=== PATIENT | male | born 1975 | race Caucasian/White ===

== ENCOUNTER 2018-07-20 05:48 | Emergency (ER) | payer OTHER ==
[2018-07-20 06:15] LABS: Basophils # (A) 0.1 k/uL (0-0.2); Basophils % (A) 1 %; Eosinophils # (A) 0.3 k/uL (0-0.7); Eosinophils % (A) 2 %; HCT 44.5 % (39.0-53.0); HGB 14.2 gm/dL (13.0-17.5); Lymphocytes # (A) 2.3 k/uL (1.0-4.8); Lymphocytes % (A) 18 %; MCH 25.8 pg (25.0-35.0); MCHC 31.9 g/dL (31.0-37.0); MCV 80.8 fL (80.0-100.0); Mean Platelet Volume 6.9; Monocytes # (A) 0.8 k/uL (0-1.0); Monocytes % (A) 6 %; Neutrophils # (A) 9.2 k/uL (1.3-7.7); Neutrophils % (A) 71 %; Platelet Count 292 k/uL (150-450); RBC 5.51 m/uL (4.30-5.90); WBC 12.8 k/uL (3.8-10.6)
[2018-07-20 06:24] LABS: ALT 33 U/L (21-72); AST 15 U/L (17-59); Albumin 4.3 g/dL (3.5-5.0); Alkaline Phosphatase 87 U/L (38-126); Amylase 48 U/L (30-110); Anion Gap 7 mmol/L; Blood Urea Nitrogen 21 mg/dL (9-20); Carbon Dioxide 30 mmol/L (22-30); Chloride 103 mmol/L (98-107); Glucose 103 mg/dL (74-99); Lipase 30 U/L (23-300); Potassium 4.5 mmol/L (3.5-5.1); Sodium 140 mmol/L (137-145); Total Bilirubin 0.4 mg/dL (0.2-1.3)
[2018-07-20] MEDS ORDERED: FAMOTIDINE 20 MG/2 ML VIAL IV STA (07:29)
[2018-07-20] MEDS ORDERED: ONDANSETRON 4 MG/2 ML VIAL IVP STA (07:29)
[2018-07-20] MEDS ORDERED: DICYCLOMINE 10 MG/ML 2 ML AMP IM STA (07:30)
--- NOTE | 2018-07-20 07:30 | XR ---
EXAMINATION TYPE: XR KUB DATE OF EXAM: 07/20/2018 COMPARISON: None INDICATION: Mid abdominal pain TECHNIQUE: Single view abdomen upright view FINDINGS: There is a normal bowel gas pattern. Psoas margins are normal. No organomegaly is present. IMPRESSION: 1. Unremarkable Abdomen
--- NOTE | 2018-07-20 07:33 | ED ---
General Adult HPI - General Chief complaint: Abdominal Pain Stated complaint: Abd Pain Time Seen by Provider: 07/20/18 07:06 Source: patient, RN notes reviewed Mode of arrival: ambulatory Limitations: no limitations - History of Present Illness Initial comments: Patient is a pleasant 42-year-old male presenting to the emergency Department with complaints of abdominal discomfort. Patient was on Colchicine for several days and did have some diarrhea. Patient discontinued this around 5 days ago. Patient has had progressive abdominal discomfort over the past week. Discomfort is lower mid abdomen. Patient has had decreased bowel movements for the past couple of days. Patient feels like his cast his intestines. Patient has mild nausea, no vomiting. Patient is tolerating oral intake. No fevers. No history of similar symptoms previously. No dysuria or hematuria. - Related Data Home Medications Medication Instructions Recorded Confirmed Colchicine 0.6 mg PO DAILY PRN 07/20/18 07/20/18 Colchicine 1.2 mg PO DAILY PRN 07/20/18 07/20/18 Naproxen 500 mg PO BID 07/20/18 07/20/18 Previous Rx's Medication Instructions Recorded Amoxic-Pot Clav 875-125Mg 1 tab PO Q12HR #20 tablet 07/20/18 [Augmentin 875-125] Allergies Allergy/AdvReac Type Severity Reaction Status Date / Time No Known Allergies Allergy Verified 07/20/18 08:00 Review of Systems ROS Statement: Those systems with pertinent positive or pertinent negative responses have been documented in the HPI. ROS Other: All systems not noted in ROS Statement are negative. Constitutional: Denies: fever Eyes: Denies: eye pain ENT: Denies: ear pain Respiratory: Denies: cough Cardiovascular: Denies: chest pain Endocrine: Denies: fatigue Gastrointestinal: Reports: abdominal pain, nausea. Denies: vomiting Genitourinary: Denies: dysuria, hematuria Musculoskeletal: Denies: back pain Skin: Denies: rash Neurological: Denies: weakness Past Medical History Additional Past Medical History / Comment(s): gout History of Any Multi-Drug Resistant Organisms: None Reported Past Surgical History: Orthopedic Surgery Additional Past Surgical History / Comment(s): right acl, right meniscus Past Psychological History: No Psychological Hx Reported Smoking Status: Former smoker Past Alcohol Use History: None Reported Past Drug Use History: Marijuana General Exam Limitations: no limitations General appearance: alert, in no apparent distress, obese Head exam: Present: atraumatic Eye exam: Present: normal appearance Neck exam: Present: normal inspection Respiratory exam: Present: normal lung sounds bilaterally Cardiovascular Exam: Present: regular rate, normal rhythm GI/Abdominal exam: Present: soft, tenderness (Mild tenderness below the umbilicus), normal bowel sounds. Absent: distended, guarding, rebound, rigid, pulsatile mass Extremities exam: Present: normal inspection Neurological exam: Present: alert Psychiatric exam: Present: normal affect, normal mood Skin exam: Present: normal color Course Vital Signs 07/20/18 05:52 Temperature 98 F Pulse Rate 73 Respiratory 20 Rate Blood Pressure 141/85 O2 Sat by Pulse 93 L Oximetry Medical Decision Making - Medical Decision Making Patient reevaluated and resting comfortably in bed. Patient updated on results and need for follow-up. - Lab Data Result diagrams: 07/20/18 06:06 07/20/18 06:06 Lab Results 07/20/18 07/20/18 Range/Units 06:06 06:06 WBC 12.8 H (3.8-10.6) k/uL RBC 5.51 (4.30-5.90) m/uL Hgb 14.2 (13.0-17.5) gm/dL Hct 44.5 (39.0-53.0) % MCV 80.8 (80.0-100.0) fL MCH 25.8 (25.0-35.0) pg MCHC 31.9 (31.0-37.0) g/dL RDW 15.0 (11.5-15.5) % Plt Count 292 (150-450) k/uL Neutrophils % 71 % Lymphocytes % 18 % Monocytes % 6 % Eosinophils % 2 % Basophils % 1 % Neutrophils # 9.2 H (1.3-7.7) k/uL Lymphocytes # 2.3 (1.0-4.8) k/uL Monocytes # 0.8 (0-1.0) k/uL Eosinophils # 0.3 (0-0.7) k/uL Basophils # 0.1 (0-0.2) k/uL Sodium 140 (137-145) mmol/L Potassium 4.5 (3.5-5.1) mmol/L Chloride 103 (98-107) mmol/L Carbon Dioxide 30 (22-30) mmol/L Anion Gap 7 mmol/L BUN 21 H (9-20) mg/dL Creatinine 0.72 (0.66-1.25) mg/dL Est GFR (CKD-EPI)AfAm >90 (>60 ml/min/1.73 sqM) Est GFR (CKD-EPI)NonAf >90 (>60 ml/min/1.73 sqM) Glucose 103 H (74-99) mg/dL Calcium 10.0 (8.4-10.2) mg/dL Total Bilirubin 0.4 (0.2-1.3) mg/dL AST 15 L (17-59) U/L ALT 33 (21-72) U/L Alkaline Phosphatase 87 (38-126) U/L Total Protein 7.0 (6.3-8.2) g/dL Albumin 4.3 (3.5-5.0) g/dL Amylase 48 (30-110) U/L Lipase 30 (23-300) U/L - Radiology Data Radiology results: report reviewed (Computed tomography scan of the abdomen pelvis shows acute uncomplicated diverticulitis), image reviewed (Abdominal x- ray shows no acute process) Disposition Clinical Impression: Diverticulitis Disposition: HOME SELF-CARE Condition: Stable Instructions (If sedation given, give patient instructions): Diverticulitis (ED ), High Fiber Diet (ED) Additional Instructions: Please follow-up with primary care physician in the next couple days for recheck. Return for increased pain, bleeding, fevers, worsening symptoms or other concerns. High-fiber diet. Prescriptions: Amoxic-Pot Clav 875-125Mg [Augmentin 875-125] 1 tab PO Q12HR #20 tablet Is patient prescribed a controlled substance at d/c from ED?: No Referrals: Chay Crews MD [Primary Care Provider] - 1-2 days Time of Disposition: 09:14
--- NOTE | 2018-07-20 08:39 | CT ---
EXAMINATION TYPE: CT abdomen pelvis w con DATE OF EXAM: 07/20/2018 COMPARISON: None HISTORY: pain above groin CT DLP: 3256 mGycm CONTRAST: CT scan of the abdomen and pelvis is performed without Oral Contrast and with IV Contrast, patient in jected with 100 mL of Isovue 300. FINDINGS: LUNG BASES-: No visible nodule. No infiltrate. LIVER/GB: There is evidence of mild hepatomegaly. No calcified gallstones. No space occupying hepat ic lesion. Biliary tree is of normal caliber. PANCREAS: No inflammation. No distinct mass. SPLEEN: No splenic enlargement. No lesion seen. ADRENALS: No nodule. No thickening. KIDNEYS/BLADDER: No hydronephrosis. No nephrolithiasis. No distinct renal mass. Urinary bladder g rossly unremarkable. BOWEL: There is mild wall thickening of the distal descending colon/sigmoid colonic junction with jimbo rounding inflammatory fat compatible with acute diverticulitis. There is no evidence for perforation or abscess. No evidence for free air. Normal appendix. Normal bowel caliber. No inflammation. GENITAL ORGANS: No gross abnormality. LYMPH NODES: No greater than 1cm abdominal or pelvic lymph nodes are appreciated. AORTA: No significant abnormality. OSSEOUS STRUCTURES: No significant abnormality is seen. OTHER: There is a fat-containing umbilical hernia noted. IMPRESSION: 1. There is evidence of a uncomplicated acute diverticulitis of the descending colonic/sigmoid coloni c junction. 2. Mild hepatomegaly. 3. Umbilical fat-containing hernia.
[2018-07-20 10:07] VITALS: BP 134/82; PULSE 88; RESP 18; TEMP 98.2
== END 2018-07-20 09:50 | disposition home or self-care (01) ==
LOC: EC 05:48
DX: K57.32 Diverticulitis of large intestine without perforation or abscess without bleeding (principal); M10.9 Gout, unspecified; Z87.891 Personal history of nicotine dependence; Z79.1 Long term (current) use of non-steroidal anti-inflammatories (NSAID)
CPT/HCPCS: 36415; 80053; 82150; 83690; 85025; 74018; 74177; 99284; 96374; 96375; 96372; J0500; J2405; Q9967

== ENCOUNTER 2021-04-15 11:21 | Emergency (ER) | payer OTHER ==
[2021-04-15 11:29] VITALS: BP 146/92; PULSE 83; RESP 18; TEMP 98
--- NOTE | 2021-04-15 12:26 | ED ---
Lower Extremity Injury HPI - General Chief Complaint: Extremity Injury, Lower Stated Complaint: fall/knee pain Time Seen by Provider: 04/15/21 11:42 Source: patient Mode of arrival: ambulatory Limitations: no limitations - History of Present Illness Initial Comments: This 45-year-old obese male presents to the emergency department with left knee pain. Patient states he was going to get into his car this morning and lifted his right leg to get into his car, when his left leg gave out, causing him to drop to the ground. Patient denies any past trauma or surgeries to his left knee. Patient states he did not hear or feel any popping or cracking to the site. Patient states he is now having pain to his knee. Patient states he is able to stand and bear weight on his leg. Patient denies falling and hitting head or any other body part. Patient states he is not on any blood thinners. Patient denies any chest pain, shortness of breath, abdominal pain, headache, change in vision, dizziness or nausea, vomiting. - Related Data Home Medications Medication Instructions Recorded Confirmed Naproxen 500 mg PO BID PRN 07/20/18 04/15/21 Allergies Allergy/AdvReac Type Severity Reaction Status Date / Time No Known Allergies Allergy Verified 04/15/21 12:56 Review of Systems ROS Statement: Those systems with pertinent positive or pertinent negative responses have been documented in the HPI. ROS Other: All systems not noted in ROS Statement are negative. Past Medical History Additional Past Medical History / Comment(s): gout History of Any Multi-Drug Resistant Organisms: None Reported Past Surgical History: Orthopedic Surgery Additional Past Surgical History / Comment(s): right acl, right meniscus Past Psychological History: No Psychological Hx Reported Smoking Status: Former smoker Past Alcohol Use History: None Reported Past Drug Use History: Marijuana General Exam Limitations: no limitations General appearance: alert, in no apparent distress Head exam: Present: atraumatic, normocephalic, normal inspection Eye exam: Present: normal appearance, PERRL, EOMI. Absent: scleral icterus, conjunctival injection, periorbital swelling ENT exam: Present: normal exam, mucous membranes moist Neck exam: Present: normal inspection, full ROM Respiratory exam: Present: normal lung sounds bilaterally. Absent: respiratory distress, wheezes, rales, rhonchi, stridor Cardiovascular Exam: Present: regular rate, normal rhythm, normal heart sounds. Absent: systolic murmur, diastolic murmur, rubs, gallop, clicks GI/Abdominal exam: Present: soft, normal bowel sounds. Absent: distended, tenderness, guarding, rebound, rigid Extremities exam: Present: full ROM, tenderness (Tenderness to left medial knee. Negative anterior or posterior drawer test. No pain to pushing or pulling left knee. Pain to medial knee when twisting lower leg (Apley grind test +) No bruising, erythema, abrasions, swelling noted), normal capillary refill. Absent: pedal edema, joint swelling, calf tenderness Back exam: Present: normal inspection. Absent: CVA tenderness (R), CVA tenderness (L) Neurological exam: Present: alert, oriented X3, CN II-XII intact Psychiatric exam: Present: normal affect, normal mood Skin exam: Present: warm, dry, intact, normal color. Absent: rash Course Vital Signs 04/15/21 11:26 Temperature 98 F Pulse Rate 83 Respiratory 18 Rate Blood Pressure 146/92 O2 Sat by Pulse 98 Oximetry Medical Decision Making - Medical Decision Making This 45-year-old male presented to emergency department with left knee pain after his knee gave out when getting to his car. Patient with medial knee pain to palpation to medial knee pain with Apley grind maneuver. Left knee x-ray impression: Is no acute fracture or dislocation and left knee. Mild narrowing medial tibiofemoral and patellofemoral compartments. Overlying soft tissue appears unremarkable. Patient had [id number] drop off a walker for him to use, therefore patient did not want me to write a prescription for crutches. Nash wrap applied over her left knee. Patient has appointment set up with his orthopedic doctor for this upcoming Monday. Patient verbally agreed to plan. Patient advised to keep leg elevated and iced until orthopedics is seen. Strict return precautions discussed. Patient sent home in stable condition. Case d iscussed with Dr. Means. Disposition Clinical Impression: Left medial knee pain Disposition: HOME SELF-CARE Condition: Stable Instructions (If sedation given, give patient instructions): Knee Pain (ED) Additional Instructions: Please return to the emergency department with any new, concerning, worsening symptoms. Please to orthopedic appointment next Monday with her doctor. Is patient prescribed a controlled substance at d/c from ED?: No Referrals: Chay Crews MD [Primary Care Provider] - 1-2 days Time of Disposition: 13:17
--- NOTE | 2021-04-15 13:08 | XR ---
EXAMINATION TYPE: XR knee complete LT DATE OF EXAM: 04/15/2021 CLINICAL HISTORY: Fall injury with pain TECHNIQUE: Three views of the left knee are obtained. COMPARISON: None. FINDINGS: There is no acute fracture/dislocation evident in left knee. Mild narrowing medial tibiofe moral and patellofemoral compartments. The overlying soft tissue appears unremarkable. IMPRESSION: There is no acute fracture or dislocation in the left knee.
== END 2021-04-15 14:04 | disposition home or self-care (01) ==
LOC: EC 11:21
DX: M25.562 Pain in left knee (principal); F12.90 Cannabis use, unspecified, uncomplicated; Z87.891 Personal history of nicotine dependence
CPT/HCPCS: 99283

== ENCOUNTER 2021-05-07 18:38 | Emergency (ER) | payer OTHER ==
[2021-05-07 19:03] VITALS: RESP 20; TEMP 98.5
[2021-05-07 19:20] LABS: Basophils # (A) 0.1 k/uL (0-0.2); Basophils % (A) 1 %; Eosinophils # (A) 0.4 k/uL (0-0.7); Eosinophils % (A) 6 %; HCT 41.3 % (39.0-53.0); HGB 13.4 gm/dL (13.0-17.5); Lymphocytes # (A) 1.6 k/uL (1.0-4.8); Lymphocytes % (A) 26 %; MCH 28.3 pg (25.0-35.0); MCHC 32.5 g/dL (31.0-37.0); MCV 87.1 fL (80.0-100.0); Mean Platelet Volume 7.4; Monocytes # (A) 0.4 k/uL (0-1.0); Monocytes % (A) 6 %; Neutrophils # (A) 3.8 k/uL (1.3-7.7); Neutrophils % (A) 60 %; Platelet Count 214 k/uL (150-450); RBC 4.75 m/uL (4.30-5.90); RDW 14.2 % (11.5-15.5); WBC 6.3 k/uL (3.8-10.6)
[2021-05-07 19:29] LABS: ALT 32 U/L (4-49); AST 26 U/L (17-59); African American GFR (CKD) >90 (>60 ml/min/1.73 sqM); Albumin 3.6 g/dL (3.5-5.0); Alkaline Phosphatase 70 U/L (38-126); Anion Gap 7 mmol/L; Blood Urea Nitrogen 19 mg/dL (9-20); Carbon Dioxide 27 mmol/L (22-30); Chloride 105 mmol/L (98-107); Glucose 146 mg/dL (74-99); Magnesium 1.8 mg/dL (1.6-2.3); Non-African American GFR(CKD) >90 (>60 ml/min/1.73 sqM); Potassium 3.8 mmol/L (3.5-5.1); Sodium 139 mmol/L (137-145); Total Bilirubin 0.4 mg/dL (0.2-1.3); Total Protein 6.5 g/dL (6.3-8.2)
[2021-05-07 19:30] LABS: INR 0.9 (<1.2); Partial Thromboplastin Time 22.6 sec (22.0-30.0); Prothrombin Time 10.2 sec (9.0-12.0)
--- NOTE | 2021-05-07 19:37 | XR ---
EXAMINATION TYPE: XR chest 2V DATE OF EXAM: 05/07/2021 7:19 PM COMPARISON:Chest radiographs from 11/13/2009 TECHNIQUE: XR chest 2V Frontal and lateral views of the chest. CLINICAL INDICATION:Male, 45 years old with history of Chest Pain; FINDINGS: Lungs/Pleura: There is no evidence of pleural effusion or pneumothorax. Left basilar opacity not defi nitely seen on prior. Pulmonary vascularity: Unremarkable. Heart/mediastinum: Cardiomediastinal silhouette is unremarkable. Musculoskeletal: No acute osseous pathology. IMPRESSION: Left basilar airspace opacity correlate for pneumonia.
[2021-05-07 23:07] VITALS: BP 147/100; PULSE 81
--- NOTE | 2021-05-07 23:48 | CT ---
EXAMINATION TYPE: CT chest angio for PE DATE OF EXAM: 05/07/2021 COMPARISON: None HISTORY: SOB CT DLP: 1113.5 mGycm Automated exposure control for dose reduction was used. CONTRAST: Performed with IV Contrast, patient injected with 100 mL of Isovue 370. Images obtained from the thoracic inlet to the diaphragm with IV contrast. There are Three-D postproc essed images. The lungs are clear of consolidation. There is no pleural effusion. There is a few paratracheal lymph nodes up to 1 cm. There are bronchial lymph nodes up to 1.5 cm. There is normal contrast opacification of the pulmonary arteries. There are no filling defects. The heart size is fairly normal. There is no pericardial effusion. Thoracic spine is intact. There is no compression fracture. Sternum is intact. The upper abdominal soft tissues are intact. Exam limite d by patient size. IMPRESSION: No evidence of pulmonary embolism. Nonspecific mediastinal and bronchial lymph nodes.
--- NOTE | 2021-05-08 00:02 | ED ---
Chest Pain HPI - General Chief Complaint: Chest Pain Stated Complaint: chest pain, dizziness Source: patient Mode of arrival: wheelchair Limitations: no limitations - History of Present Illness Initial Comments: 45-year-old male presents emergency Department with reported chest wall pain. States that he sustained a fall 2 weeks ago. 4 days after his incident he began having sternal pain. He went to [facility] 2 days ago and had laboratory studies and a CT of his chest performed. He was discharged home with a prescription for [employer]. He reports that he was at a constitution party when he felt lightheaded as if he was given a pass out. States he's been increasingly short of breath with palpitations and therefore presented today for further evaluation. He states the CT was without contrast. He denies previous history of cardiac disease. Denies cough, congestion or fevers. No other alleviating, precipitating or modifying factors - Related Data Home Medications Medication Instructions Recorded Confirmed Naproxen 500 mg PO BID PRN 07/20/18 05/07/21 Albuterol Sulfate [Proair Hfa] 2 puff INHALATION RT-QID PRN 05/07/21 05/07/21 Allergies Allergy/AdvReac Type Severity Reaction Status Date / Time No Known Allergies Allergy Verified 05/07/21 23:32 Review of Systems ROS Statement: Those systems with pertinent positive or pertinent negative responses have been documented in the HPI. ROS Other: All systems not noted in ROS Statement are negative. EKG Findings - EKG Comments: EKG Findings:: EKG demonstrates sinus rhythm with a ventricular rate of 85. UT interval 139. QRS 104. QTC of 409. No acute ST segment elevations or depressions concerning for ischemic changes Past Medical History Past Medical History: No Reported History Additional Past Medical History / Comment(s): gout History of Any Multi-Drug Resistant Organisms: None Reported Past Surgical History: Orthopedic Surgery Additional Past Surgical History / Comment(s): right acl, right meniscus Past Psychological History: No Psychological Hx Reported Smoking Status: Former smoker Past Alcohol Use History: Rare Past Drug Use History: Marijuana General Exam Limitations: no limitations Course Vital Signs 05/07/21 05/07/21 05/07/21 18:59 23:03 23:19 Temperature 98.5 F Pulse Rate 96 81 Respiratory 20 20 20 Rate Blood Pressure 133/76 147/100 O2 Sat by Pulse 94 L 96 Oximetry Chest Pain MDM - MDM Upon arrival patient is placed into room 2. A thorough history and physical exam is performed. IV access established laboratory studies were conducted. 12-lead EKG is performed. He is sent over for a CT of his chest with contrast. Laboratory studies are reviewed and troponin is negative at. CT demonstrates no acute PE, sternal fracture or signs of pneumonia. Results are discussed with the patient. Patient feels comfortable for discharge at this time. He does have follow-up next week for stress test. Instructed that he must have this test performed to ensure cardiac health. Return for any new or worsening symptoms per patient was discharged in stable condition Disposition Clinical Impression: Chest wall pain Disposition: HOME SELF-CARE Condition: Stable Instructions (If sedation given, give patient instructions): Chest Wall Pain (ED) Additional Instructions: Take Advil/Aleve/Motrin as directed on the bottle for pain relief. Return to the ED for any new or worsening symptoms. Is patient prescribed a controlled substance at d/c from ED?: No Referrals: Chay Crews MD [Primary Care Provider] - 1-2 days Time of Disposition: 00:01
== END 2021-05-08 00:32 | disposition home or self-care (01) ==
LOC: EC 18:38
DX: R07.89 Other chest pain (principal); F12.90 Cannabis use, unspecified, uncomplicated; Z87.891 Personal history of nicotine dependence; W19.XXXA Unspecified fall, initial encounter
CPT/HCPCS: 36415; 93005; 80053; 83735; 84484; 85025; 85610; 85730; 71046; 71275; 99285; Q9967

== ENCOUNTER → 2021-08-30 | Outpatient (CLI) | payer OTHER ==
[~2021-08-30] MED LIST: REGADENOSON 0.4 MG/5 ML SYRINGE IV PRN
--- NOTE | 2021-08-30 13:32 | NM ---
EXAMINATION TYPE: NM stress lexiscan cardiolite DATE OF EXAM: 08/30/2021 COMPARISON: NONE HISTORY: Heart palpitations TECHNIQUE: After the intravenous administration of 9.97 mCi Tc 99m Sestamibi - Cardiolite resting SP ECT images acquired 45 minutes post injection. The patient received 0.4mg Lexiscan, 26.8 mCi Tc 99m Sestamibi - Stress images obtained [address] injection FINDINGS: Review of stress and rest SPECT images demonstrates an exam of the reduced uptake. Cannot exclude a s mall area of stress-induced reversible ischemia involving the apex. Fixed defects involving the apica l and apical inferior wall. Corresponding wall motion defect. With an estimated left ventricular ejec tion fraction of 46 %. Report called to referring clinician 1:29 PM 08/30/2021. IMPRESSION: 1. Ejection fraction of 46% and there is a limited exam with reduced uptake matched defects involving the inferior and inferoapical myocardium. Small area of stress-induced reversible ischemia in the di fferential diagnosis within the apex of the myocardium correlate clinically.
--- NOTE | 2021-08-31 12:12 | CA ---
Lexiscan Nuclear Stress Test Report Name: Santana Carlton Exam Date: 08/30/2021 11:31 Exam Location: [place] Stress Ht (in): 73 Wt (lb): 440 BSA: 3.01 Ordering Phys: Jax Duque MD Referring Phys: Ada Doss Technologist: Carlin Munoz Age: 45 Gender: M : 1975 Procedure CPT: Indications: R00.2 palpitations ICD-10 Codes: Patient History: Medications: NAPROXEN,,,,, Meds past 24 hrs: Pretest Chest Pain: STRESS TEST Lexiscan Protocol Exercise Duration (min:sec): 01:[address] Depressions (mm): Angina Score: Landry Score: Resting HR (bpm): 77 Peak HR (bpm): 101 Resting BP (mmHg): 132 / 87 Peak BP (mmHg): 152 / 87 MPHR: 177 Target HR: 150 % MPHR: 57 METS: 1.0 Total Dose: Peak Dose: Atropine: Double Product: 14131 BP Response: Stress Termination: INFUSION COMPLETE Stress Symptoms: DIFFICULTY IN BREATHING,STOMACH ACHE Stress Summary: ECG ANALYSIS Resting ECG: Sinus rhythm with normal ID interval and QRS duration Stress ECG: Sinus rhythm without any acute changes from baseline CONCLUSIONS #1. Negative Lexiscan stress test #2. Report on the nuclear portion of the test to be provided by the radiologist Dr. Josesito Sigala MD (Electronically Signed) Final Date: 31 August 2021 12:11
== END | disposition home or self-care (01) ==
LOC: RADNMMAIN 08:46
PROVIDERS: ATTEND Internal Medicine Cardiovascular Disease
DX: R94.39 Abnormal result of other cardiovascular function study (principal)
CPT/HCPCS: 93017; 78452; A9500; J2785

== ENCOUNTER → 2021-09-06 | Outpatient (CLI) | payer OTHER ==
--- NOTE | 2021-09-07 17:29 | CA ---
Transthoracic Echo Report Name: Santana Carlton Age: 45 Gender: M : 1975 Exam Date: 09/06/2021 11:27 Exam Location: [place] Echo Ht (in): 71 Wt (lb): 445 Ordering Physician: Jax Duque MD ([id number]) Attending/Referring Phys: Ada Doss [facility] Chief Design Engineer Mary Dorman RDCS Procedure CPT: Indications: Chest pain, palpitations Cardiac Hx: No cardiac hx Technical Quality: Technically difficult study Contrast 1: Lumason Total Dose (mL): 1 Contrast 2: Total Dose (mL): MEASUREMENTS (Male / Female) Normal Values 2D ECHO LV Diastolic Diameter PLAX 2.6 cm 4.2 - 5.9 / 3.9 - 5.3 cm LV Systolic Diameter PLAX 1.4 cm IVS Diastolic Thickness 1.7 cm 0.6 - 1.0 / 0.6 - 0.9 cm LVPW Diastolic Thickness 1.6 cm 0.6 - 1.0 / 0.6 - 0.9 cm LV Relative Wall Thickness 1.3 DOPPLER AV Peak Velocity 116.3 cm/s AV Peak Gradient 5.4 mmHg MV Area PHT 4.0 cm??? MR Peak Velocity 118.0 cm/s MR Peak Gradient 5.6 mmHg Mitral E Point Velocity 85.7 cm/s Mitral A Point Velocity 78.0 cm/s Mitral E to A Ratio 1.1 MV Deceleration Time 188.7 ms TR Peak Velocity 128.7 cm/s TR Peak Gradient 6.6 mmHg Right Ventricular Systolic Press 11.5 mmHg FINDINGS Left Ventricle Moderate concentric LVH. Left ventricular ejection fraction is estimated at 55- 60 %. Left ventricular cavity size normal. Right Ventricle Right ventricle not well visualized. Right Atrium Right atrium not well visualized. Left Atrium Left atrium not well visualized. Mitral Valve Mitral valve not well visualized. Aortic Valve Aortic valve not well visualized. Tricuspid Valve Tricuspid valve not well visualized. Pulmonic Valve Pulmonic valve not well visualized. Pericardium No pericardial effusion. Aorta Aortic root and proximal ascending aorta not well visualized. CONCLUSIONS Technically difficult study. Limited views. Echo contrast was used. Normal systolic function. Cannot comment upon Doppler examination. No pericardial effusion Previewed by: Dr. Dwight Ivey MD (Electronically Signed) Final Date: 07 September 2021 17:28
== END | disposition home or self-care (01) ==
LOC: RADECHMAIN 11:14
PROVIDERS: ATTEND Internal Medicine Cardiovascular Disease
DX: R07.9 Chest pain, unspecified (principal); R00.2 Palpitations
CPT/HCPCS: C8929; Q9950; 93306

== ENCOUNTER → 2022-01-03 | Outpatient (CLI) | payer OTHER ==
[2022-01-03 14:45] VITALS: BP 143/89; PULSE 93; TEMP 97.8; BMI 63.2
--- NOTE | 2022-01-03 14:58 | P.HPBAR ---
Bariatric H&P - History & Physicial H&P Date: 01/03/22 History & Physicial: Visit/CC: new patient Patient initial contact: Initial weight: Initial weight in pounds: Height: 6 ft 1 in Initial BMI: Last weight: Current weight: 217.407 kg Current weight in pounds: 479.30 Current BMI: 63.2 [place] body weight (based on NIH guidelines): 83.461 kg Excess body weight loss: The patient is a 46 year-old M who presents for Bariatric Assessment.patient resents today for presurgical consultation. Patient is morbidly obese. His BMI ubaldo 63. Patient has multiple comorbidities related to morbid obesity. Past Medical History Past Medical History: Hypertension, Osteoarthritis (OA) Additional Past Medical History / Comment(s): Gout History of Any Multi-Drug Resistant Organisms: None Reported Past Surgical History: Orthopedic Surgery Additional Past Surgical History / Comment(s): right acl, right meniscus, nasal polyps removed Past Anesthesia/Blood Transfusion Reactions: Previous Problems w/ Anesthesia Additional Past Anesthesia/Blood Transfusion Reaction / Comm: Pt. states has very hard time coming out of anesthesia, extreme confusion and was "very scared" Past Psychological History: Anxiety Smoking Status: Former smoker Past Alcohol Use History: Rare Past Drug Use History: Marijuana Additional Drug Use History / Comment(s): Occasional Surgical - Exam Vital Signs Temp Pulse BP 97.8 F 93 143/89 01/03/22 14:33 01/03/22 14:33 01/03/22 14:33 - General well developed, well nourished, no distress - Eyes PERRL - ENT normal pinna - Neck no masses - Respiratory normal expansion - Cardiovascular Rhythm: regular - Abdomen Abdomen: soft, non tender Hernia: umbilical Bariatric Assessment & Plan Plan: morbid obesity. We had a lengthy discussion about sleeve gastric. When over the risks and benefits of the procedure. I discussed the possibility of staple line disruption, bleeding scarring. Patient will be scheduled for EGD. Bariatric Checklist Checklist: Plan: Checklist: EGD: 1. Hiatal hernia: 2. H. Pylori: HgbA1c: Vitamin D: Smoking: Former smoker Primary care physician referral: Dr. Crews Psychiatry clearance: Cardiology clearance: Sleep study: Diet journal: VTE risk score: VTE risk level: Rehab needs at discharge:
== END | disposition home or self-care (01) ==
LOC: BARWHC3 14:14
PROVIDERS: ATTEND Surgery
DX: E66.01 Morbid (severe) obesity due to excess calories (principal); Z68.44 Body mass index [BMI] 60.0-69.9, adult
CPT/HCPCS: 99213

== ENCOUNTER 2022-08-02 23:55 | Emergency (ER) | payer OTHER ==
[2022-08-03 00:01] VITALS: TEMP 98.4
[2022-08-03] MEDS ORDERED: HYDROmorphone 1 MG/ML 1 ML SYRINGE IVP STA ×3 (00:15→01:56)
[2022-08-03] MEDS ORDERED: SODIUM CHLORIDE 0.9% 1,000 ML IV ONE (00:15)
--- NOTE | 2022-08-03 00:56 | ED ---
Abdominal Pain HPI - General Chief Complaint: Abdominal Pain Stated Complaint: ABD PAIN Time Seen by Provider: 08/03/22 00:04 Source: patient Mode of arrival: EMS - History of Present Illness Initial Comments: This patient is a 46-year-old man who presents with complaint of umbilical area abdominal pain. He states that it had started around 8:20 PM after he had been working out. Patient does indicate that he has long-standing history of hernia but that it usually doesn't cause pain for him. He had seen a surgeon about a year ago, and was told to follow-up but hadn't had a chance to do that. The patient is not having vomiting. There has been no change in bowel movements. No urinary symptoms noted. No pain down to the scrotum or testicles. MD Complaint: abdominal pain -: hour(s) Location: periumbilical Radiation: none Migration to: no migration Severity: severe Quality: aching Consistency: constant Improves With: nothing Worsens With: nothing Associated Symptoms: denies other symptoms - Related Data Home Medications Medication Instructions Recorded Confirmed Naproxen 500 mg PO BID PRN 07/20/18 01/03/22 Aspirin [Adult Low Dose Aspirin EC] 81 mg PO DAILY 01/03/22 01/03/22 Isosorbide Mononitrate ER [Imdur] 30 mg PO DAILY 01/03/22 01/03/22 Metoprolol Succinate (ER) [Toprol 50 mg PO DAILY 01/03/22 01/03/22 Xl] Nitroglycerin Sl Tabs [Nitrostat] 0.4 mg SUBLINGUAL Q5M PRN 01/03/22 01/03/22 Triamterene-Hctz 37.5-25Mg 1 tab PO DAILY 01/03/22 01/03/22 [Maxzide 37.5-25] traMADol HCL 50 mg PO Q12HR PRN 01/03/22 01/03/22 Allergies Allergy/AdvReac Type Severity Reaction Status Date / Time No Known Allergies Allergy Verified 08/03/22 00:01 Review of Systems ROS Statement: Those systems with pertinent positive or pertinent negative responses have been documented in the HPI. ROS Other: All systems not noted in ROS Statement are negative. Constitutional: Denies: fever, chills Respiratory: Denies: cough, dyspnea Cardiovascular: Denies: chest pain, palpitations Gastrointestinal: Reports: abdominal pain. Denies: vomiting, diarrhea, constipation Genitourinary: Denies: dysuria, hematuria Musculoskeletal: Denies: back pain Skin: Denies: rash Neurological: Denies: headache, weakness Past Medical History Past Medical History: Hypertension, Osteoarthritis (OA) Additional Past Medical History / Comment(s): Gout, umbilical hernia, pre diabetes History of Any Multi-Drug Resistant Organisms: None Reported Past Surgical History: Orthopedic Surgery Additional Past Surgical History / Comment(s): right acl, right meniscus, nasal polyps removed Past Anesthesia/Blood Transfusion Reactions: Previous Problems w/ Anesthesia Additional Past Anesthesia/Blood Transfusion Reaction / Comment(s): Pt. states has very hard time coming out of anesthesia, extreme confusion and was "very scared" Past Psychological History: Anxiety Smoking Status: Former smoker Past Alcohol Use History: Rare Past Drug Use History: Marijuana General Exam General appearance: alert, in no apparent distress Head exam: Present: atraumatic, normocephalic Eye exam: Present: normal appearance. Absent: scleral icterus, conjunctival injection ENT exam: Present: normal oropharynx Respiratory exam: Present: normal lung sounds bilaterally. Absent: respiratory distress, wheezes, rales, rhonchi, stridor Cardiovascular Exam: Present: regular rate, normal rhythm, normal heart sounds. Absent: systolic murmur, diastolic murmur, rubs, gallop GI/Abdominal exam: Present: soft, tenderness, guarding, diminished bowel sounds, hernia. Absent: distended, rebound, rigid, mass Extremities exam: Present: normal inspection, normal capillary refill. Absent: pedal edema, calf tenderness Back exam: Present: normal inspection. Absent: CVA tenderness (R), CVA tenderness (L) Neurological exam: Present: alert Skin exam: Present: warm, dry, intact, normal color. Absent: rash Course Vital Signs 08/02/22 08/03/22 23:57 03:31 Temperature 98.4 F Pulse Rate 83 75 Respiratory 22 16 Rate Blood Pressure 138/81 129/80 O2 Sat by Pulse 98 94 L Oximetry Medical Decision Making - Medical Decision Making This patient is a 46-year-old man presenting with periumbilical abdominal pain. On the exam there is what appears to be incarcerated umbilical hernia. On arrival the patient would not tolerate attempted reduction due to tenderness. He was given dose of analgesic and then I was able to reduce the hernia at the bedside. The patient did feel marked relief of symptoms at that time. He was sent for CT and states that in the process of being moved there he felt like the hernia had recurred. When he came back from the CT I was able to reduce the hernia, this time with much less difficulty. The patient did have elevated lactic acid and for this reason will admit to have surgery evaluate the patient. Case discussed with surgery and treatment recommendations incorporated. Was pt. sent in by a medical professional or institution (, PA, PROPERTY WORKER, urgent care, hospital, or penitentiary...) When possible be specific @ -[No] Did you speak to anyone other than the patient for history (EMS, parent, family, police, friend...)? What history was obtained from this source @ -[No] Did you review nursing and triage notes (agree or disagree)? Why? @ -[I reviewed and agree with nursing and triage notes] Were old charts reviewed (outside hosp., previous admission, EMS record, old EKG, old radiological studies, urgent care reports/EKG's, penitentiary records)? Report findings @ -[No old charts were reviewed] Differential Diagnosis (chest pain, altered mental status, abdominal pain women, abdominal pain men, vaginal bleeding, weakness, fever, dyspnea, syncope, headache, dizziness, GI bleed, back pain, seizure, CVA, palpatations, mental health, musculoskeletal)? @ -Differential Abdominal Pain Men: Appendicitis, cholecystitis, diverticulosis, ischemic bowel, pancreatitis, hepatitis, UTI, gastroenteritis, AAA, incarcerated hernia, bowel obstruction, constipation, inflammatory bowel, hepatitis, peptic ulcer disease, splenic infarction, perforated viscus, testicular torsion, this is not meant to be an all-inclusive list EKG interpreted by me (3pts min.). @ -[As above] X-rays interpreted by me (1pt min.). @ -[None done] CT interpreted by me (1pt min.). @ -[None done] U/S interpreted by me (1pt. min.). @ -[None done] What testing was considered but not performed or refused? (CT, X-rays, U/S, labs)? Why? @ -[None] What meds were considered but not given or refused? Why? @ -[None] Did you discuss the management of the patient with other professionals (professionals i.e. , PA, PROPERTY WORKER, lab, RT, psych nurse, social worker palliative care, shade maker, teacher, security officer supervisor, trimming caser)? Give summary @ -[Case is discussed with surgery Was smoking cessation discussed for >3mins.? @ -[No] Was critical care preformed (if so, how long)? @ -[No] Were there social determinants of health that impacted care today? How? ( Homelessness, low income, unemployed, alcoholism, drug addiction, transportation, low edu. Level, literacy, decrease access to med. care, residential, rehab)? @ -[No] Was there de-escalation of care discussed even if they declined (Discuss DNR or withdrawal of care, Hospice)? DNR status @ -[No] What co-morbidities impacted this encounter? (DM, HTN, Smoking, COPD, CAD, Cancer, CVA, ARF, Chemo, Hep., AIDS, mental health diagnosis, sleep apnea, morbid obesity)? @ -[None] Was patient admitted / discharged? Hospital course, mention meds given and route, prescriptions, significant lab abnormalities, going to OR and other pertinent info. @ -[The patient did have suspected incarcerated hernia that was reduced at the bedside twice. I discussed the case with surgery on-call and the patient is admitted. He subsequently changed his mind and signed out AGAINST MEDICAL ADV ICE. I did discuss the need to return should there be any symptoms, and if he is not feeling well today. Undiagnosed new problem with uncertain prognosis? @ -[No] Drug Therapy requiring intensive monitoring for toxicity (Heparin, Nitro, Insuli n, Cardizem)? @ -[No] Were any procedures done? @ -[No] Diagnosis/symptom? @ -[Acute abdominal pain Incarcerated hernia Acute, or Chronic, or Acute on Chronic? @ -[default] Uncomplicated (without systemic symptoms) or Complicated (systemic symptoms)? @ -[Conjugated Side effects of treatment? @ -[No] Exacerbation, Progression, or Severe Exacerbation? @ -[No] Poses a threat to life or bodily function? How? (Chest pain, USA, NC, pneumonia, PE, COPD, DKA, ARF, appy, cholecystitis, CVA, Diverticulitis, Homicidal, Suicidal, threat to staff... and all critical care pts) @ -[Yes, untreated incarcerated hernia may lead to bowel ischemia which may lead to worsening and - Lab Data Result diagrams: 08/03/22 00:16 08/03/22 00:16 Lab Results 08/03/22 08/03/22 08/03/22 Range/Units 00:16 00:16 00:16 WBC 10.2 (3.8-10.6) k/uL RBC 5.63 (4.30-5.90) m/uL Hgb 14.4 (13.0-17.5) gm/dL Hct 46.1 (39.0-53.0) % MCV 81.8 (80.0-100.0) fL MCH 25.7 (25.0-35.0) pg MCHC 31.4 (31.0-37.0) g/dL RDW 15.9 H (11.5-15.5) % Plt Count 235 (150-450) k/uL MPV 8.0 Neutrophils % 74 % Lymphocytes % 16 % Monocytes % 6 % Eosinophils % 1 % Basophils % 1 % Neutrophils # 7.6 (1.3-7.7) k/uL Lymphocytes # 1.7 (1.0-4.8) k/uL Monocytes # 0.6 (0-1.0) k/uL Eosinophils # 0.1 (0-0.7) k/uL Basophils # 0.1 (0-0.2) k/uL Sodium 137 (137-145) mmol/L Potassium 4.6 (3.5-5.1) mmol/L Chloride 102 (98-107) mmol/L Carbon Dioxide 22 (22-30) mmol/L Anion Gap 13 mmol/L BUN 18 (9-20) mg/dL Creatinine 0.74 (0.66-1.25) mg/dL Est GFR (CKD-EPI)AfAm >90 (>60 ml/min/1.73 sqM) Est GFR (CKD-EPI)NonAf >90 (>60 ml/min/1.73 sqM) Glucose 104 H (74-99) mg/dL Lactic Ac Sepsis Rflx Plasma Lactic Acid Gage 2.2 H* (0.7-2.0) mmol/L Calcium 9.4 (8.4-10.2) mg/dL Total Bilirubin 0.8 (0.2-1.3) mg/dL AST 40 (17-59) U/L ALT 55 H (4-49) U/L Alkaline Phosphatase 73 (38-126) U/L Total Protein 7.2 (6.3-8.2) g/dL Albumin 4.4 (3.5-5.0) g/dL Amylase 44 (30-110) U/L Lipase 28 (23-300) U/L Urine Color Urine Appearance (Clear) Urine pH (5.0-8.0) Ur Specific [place] (1.001-1.035) Urine Protein (Negative) Urine Glucose (UA) (Negative) Urine Ketones (Negative) Urine Blood (Negative) Urine Nitrite (Negative) Urine Bilirubin (Negative) Urine Urobilinogen (<2.0) mg/dL Ur Leukocyte Esterase (Negative) 08/03/22 08/03/22 Range/Units 00:26 01:23 WBC (3.8-10.6) k/uL RBC (4.30-5.90) m/uL Hgb (13.0-17.5) gm/dL Hct (39.0-53.0) % MCV (80.0-100.0) fL MCH (25.0-35.0) pg MCHC (31.0-37.0) g/dL RDW (11.5-15.5) % Plt Count (150-450) k/uL MPV Neutrophils % % Lymphocytes % % Monocytes % % Eosinophils % % Basophils % % Neutrophils # (1.3-7.7) k/uL Lymphocytes # (1.0-4.8) k/uL Monocytes # (0-1.0) k/uL Eosinophils # (0-0.7) k/uL Basophils # (0-0.2) k/uL Sodium (137-145) mmol/L Potassium (3.5-5.1) mmol/L Chloride (98-107) mmol/L Carbon Dioxide (22-30) mmol/L Anion Gap mmol/L BUN (9-20) mg/dL Creatinine (0.66-1.25) mg/dL Est GFR (CKD-EPI)AfAm (>60 ml/min/1.73 sqM) Est GFR (CKD-EPI)NonAf (>60 ml/min/1.73 sqM) Glucose (74-99) mg/dL Lactic Ac Sepsis Rflx Y Plasma Lactic Acid [place] (0.7-2.0) mmol/L Calcium (8.4-10.2) mg/dL Total Bilirubin (0.2-1.3) mg/dL AST (17-59) U/L ALT (4-49) U/L Alkaline Phosphatase (38-126) U/L Total Protein (6.3-8.2) g/dL Albumin (3.5-5.0) g/dL Amylase (30-110) U/L Lipase (23-300) U/L Urine Color Yellow Urine Appearance Clear (Clear) Urine pH 8.0 (5.0-8.0) Ur Specific [place] 1.031 (1.001-1.035) Urine Protein Negative (Negative) Urine Glucose (UA) 4+ H (Negative) Urine Ketones 3+ H (Negative) Urine Blood Negative (Negative) Urine Nitrite Negative (Negative) Urine Bilirubin Negative (Negative) Urine Urobilinogen <2.0 (<2.0) mg/dL Ur Leukocyte Esterase Negative (Negative) - EKG Data -: EKG Interpreted by Ok EKG shows normal: sinus rhythm, axis (Normal), intervals (Normal), QRS complexes (Normal), ST-T waves (Normal) Rate: normal (Rate 68 bpm) Interpretation: normal EKG Disposition Clinical Impression: Incarcerated umbilical hernia Disposition: Left Against Medical Advice Condition: Serious Is patient prescribed a controlled substance at d/c from ED?: No Referrals: Chay Crews MD [Primary Care Provider] - 1-2 days Abilio Genao MD [STAFF PHYSICIAN] - 1-2 days Joie Quintanilla DO [Doctor of Osteopathic Medicine] - 1-2 days
[2022-08-03 01:03] LABS: Basophils # (A) 0.1 k/uL (0-0.2); Basophils % (A) 1 %; Eosinophils # (A) 0.1 k/uL (0-0.7); Eosinophils % (A) 1 %; HCT 46.1 % (39.0-53.0); HGB 14.4 gm/dL (13.0-17.5); Lymphocytes # (A) 1.7 k/uL (1.0-4.8); Lymphocytes % (A) 16 %; MCH 25.7 pg (25.0-35.0); MCHC 31.4 g/dL (31.0-37.0); MCV 81.8 fL (80.0-100.0); Monocytes # (A) 0.6 k/uL (0-1.0); Monocytes % (A) 6 %; Neutrophils # (A) 7.6 k/uL (1.3-7.7); Neutrophils % (A) 74 %; Platelet Count 235 k/uL (150-450); RBC 5.63 m/uL (4.30-5.90); RDW 15.9 % (11.5-15.5); WBC 10.2 k/uL (3.8-10.6)
[2022-08-03 01:14] LABS: ALT 55 U/L (4-49); AST 40 U/L (17-59); African American GFR (CKD) >90 (>60 ml/min/1.73 sqM); Albumin 4.4 g/dL (3.5-5.0); Alkaline Phosphatase 73 U/L (38-126); Amylase 44 U/L (30-110); Anion Gap 13 mmol/L; Blood Urea Nitrogen 18 mg/dL (9-20); Calcium 9.4 mg/dL (8.4-10.2); Carbon Dioxide 22 mmol/L (22-30); Chloride 102 mmol/L (98-107); Glucose 104 mg/dL (74-99); Lipase 28 U/L (23-300); Non-African American GFR(CKD) >90 (>60 ml/min/1.73 sqM); Sodium 137 mmol/L (137-145); Total Bilirubin 0.8 mg/dL (0.2-1.3); Total Protein 7.2 g/dL (6.3-8.2)
[2022-08-03 01:22] LABS: Potassium 4.6 mmol/L (3.5-5.1)
[2022-08-03 02:00] LABS: Appearance,Urine Clear (Clear); Bilirubin,Urine Negative (Negative); Blood,Urine Negative (Negative); Color,Urine Yellow; Glucose,Urine (UA) 4+ (Negative); Leukocyte Esterase,Urine Negative (Negative); Nitrite,Urine Negative (Negative); Protein,Urine Negative (Negative); Specific Gravity,Urine 1.031 (1.001-1.035); Urobilinogen,Urine <2.0 mg/dL (<2.0)
--- NOTE | 2022-08-03 02:12 | CT ---
EXAM: CT Abdomen and Pelvis With Intravenous Contrast CLINICAL HISTORY: ITS.REASON CT Reason: incarcerated umbilical hernia TECHNIQUE: Axial computed tomography images of the abdomen and pelvis with intravenous contrast. CTDI is 94.3 mGy and DLP is 5029 mGy-cm. This CT exam was performed using one or more of the following dose reduction techniques: automated exposure control, adjustment of the mA and/or kV according to patient size, and/or use of iterative reconstruction technique. COMPARISON: 07/20/2018 FINDINGS: Lung bases: Unremarkable. No mass. No consolidation. ABDOMEN: Liver: Unremarkable. No mass. Gallbladder and bile ducts: Unremarkable. No calcified stones. No ductal dilation. Pancreas: Unremarkable. No mass. No ductal dilation. Spleen: Unremarkable. No splenomegaly. Adrenals: Unremarkable. No mass. Kidneys and ureters: 0.5 cm nonobstructing mid left renal calculus. Stomach and bowel: Periumbilical hernia with a 2 cm defect with small bowel protruding through the defect. While there are mildly dilated loops of small bowel entering the hernia, the proximal small bowel is decompressed and at most is causing a partial obstruction. There is inflammation of the omental fat surrounding the bowel loop in the hernia sac. No mucosal thickening. PELVIS: Appendix: No findings to suggest acute appendicitis. Bladder: Unremarkable. No mass. Reproductive: Unremarkable as visualized. ABDOMEN and PELVIS: Intraperitoneal space: Unremarkable. No free air. No significant fluid collection. Bones/joints: No acute fracture. No dislocation. Soft tissues: See above. Vasculature: Unremarkable. No abdominal aortic aneurysm. Lymph nodes: Unremarkable. No enlarged lymph nodes. IMPRESSION: 1. Periumbilical hernia with a 2 cm defect with small bowel protruding through the defect. While there are mildly dilated loops of small bowel entering the hernia, the proximal small bowel is decompressed and at most is causing a partial obstruction. Inflammation of the omental fat surrounding the bowel loop in the hernia sac. 2. 0.5 cm nonobstructing mid left renal calculus.
[2022-08-03 02:19] LABS: Ketones,Urine 3+ (Negative)
[2022-08-03 03:32] VITALS: BP 129/80; PULSE 75; RESP 16
== END 2022-08-03 03:36 | disposition left against medical advice (07) ==
LOC: EC 23:55
DX: K42.0 Umbilical hernia with obstruction, without gangrene (principal); N20.0 Calculus of kidney; I10 Essential (primary) hypertension; M19.90 Unspecified osteoarthritis, unspecified site; F41.9 Anxiety disorder, unspecified; Z87.891 Personal history of nicotine dependence; Z79.82 Long term (current) use of aspirin; Z79.1 Long term (current) use of non-steroidal anti-inflammatories (NSAID); Z79.899 Other long term (current) drug therapy
CPT/HCPCS: 36415; 93005; 80053; 82150; 83605; 83690; 85025; 81003; 74177; 99285; 96374; 96376; 96361; J1170; Q9967

== ENCOUNTER 2023-02-14 01:20 | Emergency (ER) | payer OTHER ==
[2023-02-14 01:31] VITALS: RESP 18
[2023-02-14] MEDS ORDERED: KETOROLAC 15 MG/ML 1 ML VIAL IVP STA ×2 (01:43→04:04)
[2023-02-14] MEDS ORDERED: HYDROmorphone 1 MG/ML 1 ML SYRINGE IVP STA ×3 (01:43→04:04)
[2023-02-14 01:59] LABS: Basophils # (A) 0.1 k/uL (0-0.2); Basophils % (A) 1 %; Eosinophils # (A) 0.3 k/uL (0-0.7); Eosinophils % (A) 4 %; HCT 44.1 % (39.0-53.0); HGB 14.4 gm/dL (13.0-17.5); Lymphocytes # (A) 2.2 k/uL (1.0-4.8); Lymphocytes % (A) 23 %; MCH 28.1 pg (25.0-35.0); MCHC 32.8 g/dL (31.0-37.0); MCV 85.8 fL (80.0-100.0); Mean Platelet Volume 7.6; Monocytes # (A) 0.6 k/uL (0-1.0); Monocytes % (A) 6 %; Neutrophils # (A) 6.2 k/uL (1.3-7.7); Neutrophils % (A) 65 %; Platelet Count 250 k/uL (150-450); RBC 5.14 m/uL (4.30-5.90); WBC 9.4 k/uL (3.8-10.6)
--- NOTE | 2023-02-14 02:00 | ED ---
Abdominal Pain HPI - General Chief Complaint: Abdominal Pain Stated Complaint: Hernia Time Seen by Provider: 02/14/23 01:21 Source: patient, RN notes reviewed Mode of arrival: ambulatory Limitations: no limitations - History of Present Illness Initial Comments: This is a 47-year-old male who presents to the emergency department for abdominal pain. Reports a history of an umbilical hernia that was diagnosed about 6 months ago. States that he presented to the emergency department at that time and it was successfully reduced. States that he has since had problems with this popping out 2 or 3 times a day. He is always able to reduce this on his own. However, states that today it became increasingly painful and he was unable to push this back in. Also states that it feels different than before. He did see Dr. Swan 2 weeks ago and they scheduled surgery to repair this on 06/04. Denies any nausea/vomiting or problems with constipation. MD Complaint: abdominal pain - Related Data Home Medications Medication Instructions Recorded Confirmed Naproxen 500 mg PO BID PRN 07/20/18 01/03/22 Aspirin [Adult Low Dose Aspirin EC] 81 mg PO DAILY 01/03/22 01/03/22 Isosorbide Mononitrate ER [Imdur] 30 mg PO DAILY 01/03/22 01/03/22 Metoprolol Succinate (ER) [Toprol 50 mg PO DAILY 01/03/22 01/03/22 Xl] Nitroglycerin Sl Tabs [Nitrostat] 0.4 mg SUBLINGUAL Q5M PRN 01/03/22 01/03/22 Triamterene-Hctz 37.5-25Mg 1 tab PO DAILY 01/03/22 01/03/22 [Maxzide 37.5-25] traMADol HCL 50 mg PO Q12HR PRN 01/03/22 01/03/22 Allergies Allergy/AdvReac Type Severity Reaction Status Date / Time No Known Allergies Allergy Verified 08/03/22 00:01 Review of Systems ROS Statement: Those systems with pertinent positive or pertinent negative responses have been documented in the HPI. ROS Other: All systems not noted in ROS Statement are negative. Past Medical History Past Medical History: Hypertension, Osteoarthritis (OA) Additional Past Medical History / Comment(s): Gout, umbilical hernia, pre diabetes History of Any Multi-Drug Resistant Organisms: None Reported Past Surgical History: Orthopedic Surgery Additional Past Surgical History / Comment(s): right acl, right meniscus, nasal polyps removed Past Anesthesia/Blood Transfusion Reactions: Previous Problems w/ Anesthesia Additional Past Anesthesia/Blood Transfusion Reaction / Comment(s): Pt. states has very hard time coming out of anesthesia, extreme confusion and was "very scared" Past Psychological History: Anxiety Smoking Status: Former smoker Past Alcohol Use History: Rare Past Drug Use History: Marijuana General Exam Limitations: no limitations General appearance: alert, in no apparent distress Head exam: Present: atraumatic, normocephalic, normal inspection Respiratory exam: Present: normal lung sounds bilaterally. Absent: respiratory distress, wheezes, rales, rhonchi, stridor Cardiovascular Exam: Present: regular rate, normal rhythm, normal heart sounds. Absent: systolic murmur, diastolic murmur, rubs, gallop, clicks GI/Abdominal exam: Present: soft, hernia. Absent: distended Neurological exam: Present: alert, oriented X3, CN II-XII intact Psychiatric exam: Present: normal affect, normal mood Skin exam: Present: warm, dry, intact, normal color. Absent: rash Course Vital Signs 02/14/23 01:24 Temperature 98.6 F Pulse Rate 74 Respiratory 18 Rate Blood Pressure 146/97 O2 Sat by Pulse 95 Oximetry Medical Decision Making - Medical Decision Making This is a 47-year-old male who presents to the emergency department for abdominal pain. Was pt. sent in by a medical professional or institution? @ -No Did you speak to anyone other than the patient for history? @ -No Did you review nursing and triage notes? @ -Yes, and I agree, it is accurate with regards to the patient's symptoms. Were old charts reviewed? @ -No Differential Diagnosis? @ -Differential Abdominal Pain Men: Appendicitis, cholecystitis, diverticulosis, ischemic bowel, pancreatitis, he patitis, UTI, gastroenteritis, AAA, incarcerated hernia, bowel obstruction, constipation, inflammatory bowel, hepatitis, peptic ulcer disease, splenic infarction, perforated viscus, testicular torsion, this is not meant to be an all-inclusive list EKG interpreted by me (3pts min.)? @ -Not obtained X-rays interpreted by me (1pt min.)? @ -Not obtained CT interpreted by me (1pt min.)? @ -Computed tomography scan of the abdomen and pelvis obtained. My interpretation identifies a periumbilical hernia. U/S interpreted by me (1pt. min.)? @ -Not obtained What testing was considered but not performed? (CT, X-rays, U/S, labs)? Why? @ -None What meds were considered but not given? Why? @ -None Did you discuss the management of the patient with other professionals? @ -No Did you reconcile home meds? @ -No Was smoking cessation discussed for >3mins.? @ -No Was critical care preformed (if so, how long)? @ -No Were there social determinants of health that impacted care today? How? (Homelessness, low income, unemployed, alcoholism, drug addiction, transportation, low edu. Level, literacy, decrease access to med. care, penitentiary, rehab)? @ -No Was there de-escalation of care discussed even if they declined? (Discuss DNR or withdrawal of care, Hospice)? @ -No What co-morbidities impacted this encounter? (DM, HTN, Smoking, COPD, CAD, Cancer, CVA, Hep., AIDS, mental health diagnosis, sleep apnea, morbid obesity)? @ -Morbid obesity, umbilical hernia Was patient admitted / discharged? @ -Discharged. Lab work obtained and found to be nonactionable. Computed tomography scan of the abdomen and pelvis obtained revealing a periumbilical hernia with omental fat protruding the defect with minimal fluid and inflammation of the omental fat. Patient was placed in the Trendelenburg position and ice was applied to the abdomen for approximately 25 minutes. Afterwards with direct manipulation the hernia was successfully reduced and the patient had improvement in symptoms. He was discharged home in stable condition and will follow up with general surgery. Undiagnosed new problem with uncertain prognosis? @ -None Drug Therapy requiring intensive monitoring for toxicity (Heparin, Nitro, Insulin, Cardizem)? @ -None Were any procedures done? @ -None Diagnosis/symptom? @ -Umbilical hernia Acute, or Chronic, or Acute on Chronic? @ -Chronic Uncomplicated (without systemic symptoms) or Complicated (systemic symptoms)? @ -Uncomplicated Side effects of treatment? @ -None Exacerbation, Progression, or Severe Exacerbation] @ -Exacerbation Poses a threat to life or bodily function? @ -No Return precautions reviewed in depth, the patient is instructed to return to the emergency department with any new, worsening, or concerning symptoms. Patient verbalized understanding. This case was discussed in detail with the attending ED physician, Dr. Tinsley. Presentation, findings, and treatment plan discussed in detail as well. - Lab Data Result diagrams: 02/14/23 01:48 02/14/23 01:48 Lab Results 02/14/23 02/14/23 02/14/23 Range/Units 01:48 01:48 01:48 WBC 9.4 (3.8-10.6) k/uL RBC 5.14 (4.30-5.90) m/uL Hgb 14.4 (13.0-17.5) gm/dL Hct 44.1 (39.0-53.0) % MCV 85.8 (80.0-100.0) fL MCH 28.1 (25.0-35.0) pg MCHC 32.8 (31.0-37.0) g/dL RDW 14.0 (11.5-15.5) % Plt Count 250 (150-450) k/uL MPV 7.6 Neutrophils % 65 % Lymphocytes % 23 % Monocytes % 6 % Eosinophils % 4 % Basophils % 1 % Neutrophils # 6.2 (1.3-7.7) k/uL Lymphocytes # 2.2 (1.0-4.8) k/uL Monocytes # 0.6 (0-1.0) k/uL Eosinophils # 0.3 (0-0.7) k/uL Basophils # 0.1 (0-0.2) k/uL Sodium 139 (137-145) mmol/L Potassium 3.7 (3.5-5.1) mmol/L Chloride 105 (98-107) mmol/L Carbon Dioxide 24 (22-30) mmol/L Anion Gap 10 mmol/L BUN 16 (9-20) mg/dL Creatinine 0.74 (0.66-1.25) mg/dL Est GFR (CKD-EPI)AfAm >90 (>60 ml/min/1.73 sqM) Est GFR (CKD-EPI)NonAf >90 (>60 ml/min/1.73 sqM) Glucose 106 H (74-99) mg/dL Plasma Lactic Acid Gage 0.9 (0.7-2.0) mmol/L Calcium 9.5 (8.4-10.2) mg/dL Total Bilirubin 0.5 (0.2-1.3) mg/dL AST 17 (17-59) U/L ALT 19 (4-49) U/L Alkaline Phosphatase 75 (38-126) U/L Total Protein 6.5 (6.3-8.2) g/dL Albumin 3.9 (3.5-5.0) g/dL - Radiology Data Radiology results: report reviewed, image reviewed Disposition Clinical Impression: Periumbilical hernia Disposition: HOME SELF-CARE Instructions (If sedation given, give patient instructions): Umbilical Hernia (ED) Additional Instructions: Return to the emergency department with any new, worsening, or concerning symptoms. Alternate with ibuprofen and Tylenol as needed for pain relief. Contact Dr. Swan for a follow-up appointment if needed. Is patient prescribed a controlled substance at d/c from ED?: No Referrals: Chay Crews [Primary Care Provider] - 1-2 days
[2023-02-14 02:14] LABS: ALT 19 U/L (4-49); AST 17 U/L (17-59); African American GFR (CKD) >90 (>60 ml/min/1.73 sqM); Albumin 3.9 g/dL (3.5-5.0); Alkaline Phosphatase 75 U/L (38-126); Anion Gap 10 mmol/L; Blood Urea Nitrogen 16 mg/dL (9-20); Calcium 9.5 mg/dL (8.4-10.2); Carbon Dioxide 24 mmol/L (22-30); Chloride 105 mmol/L (98-107); Glucose 106 mg/dL (74-99); Non-African American GFR(CKD) >90 (>60 ml/min/1.73 sqM); Potassium 3.7 mmol/L (3.5-5.1); Sodium 139 mmol/L (137-145); Total Bilirubin 0.5 mg/dL (0.2-1.3); Total Protein 6.5 g/dL (6.3-8.2)
--- NOTE | 2023-02-14 03:25 | CT ---
EXAM: CT Abdomen and Pelvis With Intravenous Contrast CLINICAL HISTORY: ITS.REASON CT Reason: Painful umbilical hernia TECHNIQUE: Axial computed tomography images of the abdomen and pelvis with intravenous contrast. CTDI is 51.1 mGy and DLP is 2820 mGy-cm. This CT exam was performed using one or more of the following dose reduction techniques: automated exposure control, adjustment of the mA and/or kV according to patient size, and/or use of iterative reconstruction technique. COMPARISON: 08/03/2022 FINDINGS: Lung bases: Unremarkable. No mass. No consolidation. ABDOMEN: Liver: Unremarkable. No mass. Gallbladder and bile ducts: Unremarkable. No calcified stones. No ductal dilation. Pancreas: Unremarkable. No mass. No ductal dilation. Spleen: Unremarkable. No splenomegaly. Adrenals: Unremarkable. No mass. Kidneys and ureters: 0.5 cm nonobstructing left upper pole renal calculus. Stomach and bowel: Unremarkable. No obstruction. No mucosal thickening. PELVIS: Appendix: No findings to suggest acute appendicitis. Bladder: Unremarkable. No mass. Reproductive: Unremarkable as visualized. ABDOMEN and PELVIS: Intraperitoneal space: Unremarkable. No free air. No significant fluid collection. Bones/joints: No acute fracture. No dislocation. Soft tissues: Periumbilical hernia with omental fat protruding the defect with minimal fluid and inflammation of the omental fat. Vasculature: Unremarkable. No abdominal aortic aneurysm. Lymph nodes: Unremarkable. No enlarged lymph nodes. IMPRESSION: 1. 0.5 cm nonobstructing left upper pole renal calculus. 2. Periumbilical hernia with omental fat protruding the defect with minimal fluid and inflammation of the omental fat.
[2023-02-14] MEDS ORDERED: IBUPROFEN 600 MG STARTER PACK 4 TAB BTL PO STA (04:44)
[2023-02-14] MEDS ORDERED: ACET/COD 300 MG/30 MG STARTER PACK 6 TAB BTL PO STA (04:44)
[2023-02-14 05:15] VITALS: BP 135/76; PULSE 77; TEMP 98.2
== END 2023-02-14 05:05 | disposition home or self-care (01) ==
LOC: EC 01:20
DX: K42.9 Umbilical hernia without obstruction or gangrene (principal); I10 Essential (primary) hypertension; E66.01 Morbid (severe) obesity due to excess calories; F12.90 Cannabis use, unspecified, uncomplicated; Z86.59 Personal history of other mental and behavioral disorders; Z87.891 Personal history of nicotine dependence; Z68.41 Body mass index [BMI] 40.0-44.9, adult
CPT/HCPCS: 36415; 80053; 83605; 85025; 74177; 96374; 96375; 96376 ×3; 99284; J1170; J1885; Q9967

== ENCOUNTER 2024-01-12 07:55 | Day surgery (SDC) | payer BC, OTHER ==
[2024-01-09 14:27] VITALS: BMI 44.9
[~2024-01-12 07:55] MED LIST changes: -REGADENOSON 0.4 MG/5 ML SYRINGE IV PRN; +SCOPOLAMINE 1 MG/72 HR PATCH TRANSDERM ONE
[2024-01-12 08:29] LABS: Glucose,Whole Blood 104 mg/dL (70-110)
[2024-01-12 08:35] LABS: Basophils # (A) 0.1 k/uL (0-0.2); Basophils % (A) 1 %; Eosinophils # (A) 0.4 k/uL (0-0.7); Eosinophils % (A) 5 %; HCT 44.7 % (39.0-53.0); HGB 14.2 gm/dL (13.0-17.5); Lymphocytes # (A) 1.6 k/uL (1.0-4.8); Lymphocytes % (A) 24 %; MCH 28.2 pg (25.0-35.0); MCHC 31.8 g/dL (31.0-37.0); MCV 88.7 fL (80.0-100.0); Mean Platelet Volume 7.2; Monocytes # (A) 0.4 k/uL (0-1.0); Monocytes % (A) 6 %; Neutrophils # (A) 4.1 k/uL (1.3-7.7); Neutrophils % (A) 61 %; Platelet Count 263 k/uL (150-450); RBC 5.04 m/uL (4.30-5.90); RDW 13.5 % (11.5-15.5); WBC 6.8 k/uL (3.8-10.6)
[2024-01-12] MEDS: ONDANSETRON 4 MG/2 ML VIAL IVP ONE (08:45)
[2024-01-12] MEDS: ACETAMINOPHEN TAB 500 MG TAB PO PRN (08:46)
[2024-01-12] MEDS: DEXAMETHASONE SOD PHOSPHATE 4 MG/ML 1 ML VIAL IV ONE (08:46)
[2024-01-12] MEDS: LACTATED RINGERS 1,000 ML IV SCH (08:46)
[2024-01-12] MEDS: IV FLUID CONTINUATION 1,000 ML IV ONE (08:54)
[2024-01-12 09:00] LABS: ALT 25 U/L (4-49); AST 24 U/L (17-59); African American GFR (CKD) >90 (>60 ml/min/1.73 sqM); Albumin 4.2 g/dL (3.5-5.0); Alkaline Phosphatase 69 U/L (38-126); Anion Gap 6 mmol/L; Blood Urea Nitrogen 18 mg/dL (9-20); Calcium 9.4 mg/dL (8.4-10.2); Carbon Dioxide 29 mmol/L (22-30); Chloride 105 mmol/L (98-107); Glucose 110 mg/dL (74-99); Non-African American GFR(CKD) >90 (>60 ml/min/1.73 sqM); Potassium 4.4 mmol/L (3.5-5.1); Sodium 140 mmol/L (137-145); Total Bilirubin 0.6 mg/dL (0.2-1.3); Total Protein 6.9 g/dL (6.3-8.2)
[2024-01-12] MEDS: MIDAZOLAM 2 MG/2 ML VIAL IV PRN (09:07)
[2024-01-12] MEDS: MIDAZOLAM 2 MG/2 ML VIAL IVP ONE (09:22)
[2024-01-12] MEDS: fentaNYL (PF) 50 MCG/ML 2 ML AMP IVP ONE (09:24)
[2024-01-12] MEDS: HEPARIN SODIUM,PORCINE 5,000 UNIT/ML 1 ML VIAL SQ PRN (09:35)
--- NOTE | 2024-01-12 09:50 | P.ANPRN ---
Procedure Note - Anesthesia - Nerve Block Performed Bilateral Erector Spinae Single Time Out Performed: Yes Date of Procedure: 01/12/24 Procedure Start Time: Procedure Stop Time: Location of Patient: PreOp Indication: Acute Post-Operative Pain Sedation Type: Sedate with meaningful contact maintained Preparation: Sterile Prep Position: Prone Needle Types: Pajunk Needle Gauge: 21 Ultrasound used to visualize needle placement: Yes Ultrasound used to observe medication spread: Yes Injectate: 0.5% Ropivacaine (see comment for volume) (15 ml + 15 ML NS + 4 mg Dexamethasone per side) Blood Aspirated: No Pain Paresthesia on Injection Noted: No Resistance on Injection: Normal Image Stored and Saved: Yes Events: Uneventful and Well Tolerated
--- NOTE | 2024-01-12 10:27 | P.GSHP ---
History of Present Illness H&P Date: 01/12/24 Chief Complaint: Umbilical hernia 48-year-old male seen in the office 1 year ago for a symptomatic umbilical hernia. This continues to give the patient difficulties. Sore at times. Has not had to go back to the ER for reduction however. No further foul odor drainage or redness from the umbilicus. Past Medical History Past Medical History: Diabetes Mellitus, Hypertension, Osteoarthritis (OA) Additional Past Medical History / Comment(s): Gout, umbilical hernia, pre diabetes("under control"), hypertension currently resolved, frequent nasal congestion, seasonal and environmental allergies, diverticulosis. History of Any Multi-Drug Resistant Organisms: None Reported Past Surgical History: Orthopedic Surgery, Tonsillectomy Additional Past Surgical History / Comment(s): Right knee arthroscopy, nasal polyps removed. Past Anesthesia/Blood Transfusion Reactions: Previous Problems w/ Anesthesia Additional Past Anesthesia/Blood Transfusion Reaction / Comment(s): Pt. states has a very hard time coming out of anesthesia, very emotional, extreme confusion and was "very scared", whole body hurts head to toe for 3-5 days after. Smoking Status: Former smoker - Past Family History Mother Family Medical History: No Reported History Medications and Allergies Home Medications Medication Instructions Recorded Confirmed Type Allergy Pill Otc 1 tab PO DAILY 01/09/24 01/12/24 History Citalopram Hydrobromide 20 mg PO QAM 01/09/24 01/09/24 History [Citalopram HBr] Nasal [place] 1 spray NASAL DIRECTED PRN 01/09/24 01/09/24 History Allergies Allergy/AdvReac Type Severity Reaction Status Date / Time No Known Allergies Allergy Verified 01/12/24 08:12 Surgical - Exam Vital Signs Temp Pulse Resp BP Pulse Ox 97.0 F L 69 16 143/66 97 01/12/24 08:17 01/12/24 08:17 01/12/24 08:17 01/12/24 08:17 01/12/24 08:17 Physical exam: General: Well-developed, well-nourished HEENT: Normocephalic, sclerae nonicteric Abdomen: Nontender, nondistended, obese, large amount of loose skin, umbilical hernia partially reducible, skin viable without drainage Extremities: No edema Neuro: Alert and oriented Results - Labs 01/12/24 08:27 01/12/24 08:27 Abnormal Lab Results - Last 24 Hours (Table) 01/12/24 Range/Units 08:27 Creatinine 0.65 L (0.66-1.25) mg/dL Glucose 110 H (74-99) mg/dL Diabetes panel 01/12/24 Range/Units 08:27 Sodium 140 (137-145) mmol/L Potassium 4.4 (3.5-5.1) mmol/L Chloride 105 (98-107) mmol/L Carbon Dioxide 29 (22-30) mmol/L BUN 18 (9-20) mg/dL Creatinine 0.65 L (0.66-1.25) mg/dL Glucose 110 H (74-99) mg/dL Calcium 9.4 (8.4-10.2) mg/dL AST 24 (17-59) U/L ALT 25 (4-49) U/L Alkaline Phosphatase 69 (38-126) U/L Total Protein 6.9 (6.3-8.2) g/dL Albumin 4.2 (3.5-5.0) g/dL Calcium panel 01/12/24 Range/Units 08:27 Calcium 9.4 (8.4-10.2) mg/dL Albumin 4.2 (3.5-5.0) g/dL Pituitary panel 01/12/24 Range/Units 08:27 Sodium 140 (137-145) mmol/L Potassium 4.4 (3.5-5.1) mmol/L Chloride 105 (98-107) mmol/L Carbon Dioxide 29 (22-30) mmol/L BUN 18 (9-20) mg/dL Creatinine 0.65 L (0.66-1.25) mg/dL Glucose 110 H (74-99) mg/dL Calcium 9.4 (8.4-10.2) mg/dL Adrenal panel 01/12/24 Range/Units 08:27 Sodium 140 (137-145) mmol/L Potassium 4.4 (3.5-5.1) mmol/L Chloride 105 (98-107) mmol/L Carbon Dioxide 29 (22-30) mmol/L BUN 18 (9-20) mg/dL Creatinine 0.65 L (0.66-1.25) mg/dL Glucose 110 H (74-99) mg/dL Calcium 9.4 (8.4-10.2) mg/dL Total Bilirubin 0.6 (0.2-1.3) mg/dL AST 24 (17-59) U/L ALT 25 (4-49) U/L Alkaline Phosphatase 69 (38-126) U/L Total Protein 6.9 (6.3-8.2) g/dL Albumin 4.2 (3.5-5.0) g/dL Assessment and Plan (1) Umbilical hernia Narrative/Plan: 48-year-old male with symptomatic umbilical hernia. Will proceed with open repair incarcerated local hernia with mesh. Possible umbillectomy discussed. Risks of bleeding, infection, recurrence, bladder and bowel injury, numbness, nerve injury were discussed with the patient. The patient understands and wishes to proceed. Current Visit: Yes Status: Acute Code(s): K42.9 - UMBILICAL HERNIA WITHOUT OBSTRUCTION OR GANGRENE SNOMED Code(s): 087130417
[2024-01-12] MEDS ORDERED: NEOSTIGMINE 1 MG/ML 10 ML VIAL ONE (10:30)
[2024-01-12] MEDS ORDERED: SUCCINYLCHOLINE CHLORIDE 200 MG/10 ML VIAL IV ONE (10:30)
[2024-01-12] MEDS ORDERED: DEXAMETHASONE SOD PHOSPHATE 4 MG/ML 1 ML VIAL ONE (10:30)
[2024-01-12] MEDS ORDERED: PROPOFOL 10 MG/ML 20 ML VIAL IV ONE (10:30)
[2024-01-12] MEDS ORDERED: fentaNYL (PF) 50 MCG/ML 2 ML AMP ONE (10:30)
[2024-01-12] MEDS ORDERED: LIDOCAINE 1% INJ 10MG/ML (20 ML MDV) ONE (10:30)
[2024-01-12] MEDS ORDERED: ROPIVACAINE 5 MG/ML 30 ML VIAL ONE (10:30)
[2024-01-12] MEDS ORDERED: KETAMINE HCL IN 0.9 % NACL 50 MG/5 ML SYRINGE ONE (10:30)
[2024-01-12] MEDS ORDERED: GLYCOPYRROLATE 0.2 MG/ML 2 ML VIAL ONE (10:30)
[2024-01-12] MEDS ORDERED: ROCURONIUM 10 MG/ML (5 ML VIAL) IV ONE (10:30)
[2024-01-12] MEDS ORDERED: MIDAZOLAM 2 MG/2 ML VIAL ONE (10:30)
[2024-01-12] MEDS ORDERED: SODIUM CHLORIDE 0.9% (PF) 10 ML VIAL ONE (10:30)
[2024-01-12] MEDS: BUPIVACAINE (PF) 0.25% 30 ML VIAL SQ ONE ×3 (10:31→11:48)
[2024-01-12] MEDS: ceFAZolin 3 GM in SODIUM CHLORIDE 0.9% 100 ML IVPB PRN (10:34)
[2024-01-12] MEDS: LACTATED RINGERS 1,000 ML IV ONE (11:44)
--- NOTE | 2024-01-12 12:19 | P.OP ---
Date of Procedure: 01/12/24 Procedure(s) Performed: PREOPERATIVE DIAGNOSIS: Incarcerated umbilical hernia POSTOPERATIVE DIAGNOSIS: Same PROCEDURE: Open repair incarcerated umbilical hernia with mesh SURGEON: Dr. Swan ANESTHESIA: General OPERATIVE PROCEDURE DETAILS: The patient was placed in the operating table in the supine position. A right sided periumbilical incision was made using the scalpel. The subcutaneous tissues were dissected bluntly and with cautery. The hernia sac was identified. The umbilical attachments to the fascia were divided using electrocautery. The hernia sac was excised. The defect in the fascia measured 2.2 x 1.5 cm. The fat overlying the fascia was dissected. No additional defects were seen. The preperitoneal space was then dissected using blunt dissection and electrocautery. It should be noted the diameter of the hernia sac itself was quite large measuring about 8 cm. The 6 4 cm ventral ex mesh was placed beneath the fascia and sutured in place using trans-fascial 0 Ethibond sutures. The defect was closed using interrupted vest over pants 0 Ethibond mattress sutures. The subcutaneous tissues were reapproximated using inverted 2-0 & 3-0 Vicryl sutures. The umbilicus was tacked back down to the fascia using a 2-0 Vicryl suture. Given the deep nature of this dissection with the patient's large amount of adiposity and extra skin I decided to place a drain. This exited from the left mid abdomen and sutured in place using a 3-0 silk stitch. The skin was closed using 4-0 Monocryl sutures. Skin glue and sterile dressings were then applied. HERNIA CHARACTERISTICS: Length: 1.5 cm Width: 2.2 cm Type: Incarcerated umbilical TYPE OF MESH USED: Ventral X6 0.4 cm LOCATION OF MESH: [place]ublay FIXATION: 0 Ethibond PREOPERATIVE DISCUSSION ON SMOKING CESSASTION: Yes PREOPERATIVE DISCUSSION ON MORBID OBESITY: Yes PREOPERATIVE DISCUSSION ON APPROPRIATE USE OF NARCOTIC USE: Yes PREOPERATIVE EDUCATION: Multi Modal, Smoking Cessation and Weight Loss with BMI over 35. DISPOSITION: Stable to recovery room
[2024-01-12 12:24] VITALS: TEMP 96.8
[2024-01-12 13:32] LABS: Glucose,Whole Blood 114 mg/dL (70-110)
[2024-01-12 14:53] VITALS: RESP 18
[2024-01-12] MEDS: HYDROmorphone 0.5 MG/0.5 ML SYRINGE IVP PRN (14:56)
[2024-01-12] MEDS ORDERED: IBUPROFEN 600 MG TAB PO SCH (15:00)
[2024-01-12 16:09] VITALS: BP 119/67; PULSE 74
[2024-01-12] MEDS ORDERED: ACETAMINOPHEN TAB 325 MG TAB PO SCH (18:00)
== END 2024-01-12 16:16 | disposition home or self-care (01) ==
LOC: OR 07:55
PROVIDERS: ATTEND Surgery
CPT/HCPCS: 64999; 80053; 85025; 88302